=== PATIENT | male | born 1980 | race Hispanic/Latino ===

== ENCOUNTER 2022-02-09 13:52 | Emergency (ER) | payer OTHER ==
--- NOTE | 2022-02-09 23:45 | Emergency Department Report ---
ED General Adult HPI - General Chief complaint: Pain General Stated complaint: PAIN/STIFFNESS SHOULDER/LEGS/FOOT Time Seen by Provider: 02/09/22 20:41 Source: patient Mode of arrival: Ambulatory Limitations: No Limitations - History of Present Illness Initial comments: 41-year-old male with past medical history of untreated HIV for the last 2 years presents emerged from complaining of joint stiffness to the hands knees ankles and shoulders which were preceded by a poison will rash which lingered for nearly 2 to 3 weeks. States that rash began to become red and inflamed and having drainage which triggered the symptoms which was similar to that of a MRSA infection he had sometime ago. Reports no flank pain, no diarrhea, no chest pain, no palpitations, no fever, chills, sweats. No hemoptysis no hematemesis, hematochezia. - Related Data Previous Rx's Medication Instructions Recorded Last Taken Type Chlorhexidine Gluconate [Hibiclens] 10 ml TP BID #240 liquid 02/09/22 Unknown Rx Ketorolac [Toradol] 10 mg PO Q6H PRN #15 tablet 02/09/22 Unknown Rx Sulfamethoxazole/Trimethoprim 1 each PO BID #20 02/09/22 Unknown Rx [Bactrim DS TAB] Allergies Allergy/AdvReac Type Severity Reaction Status Date / Time No Known Allergies Allergy Verified 02/09/22 14:34 ED Review of Systems ROS: Stated complaint: PAIN/STIFFNESS SHOULDER/LEGS/FOOT Other details as noted in HPI Comment: All other systems reviewed and negative ED Past Medical Hx - Past Medical History Hx HIV: Yes Additional medical history: MRSA - Surgical History Past Surgical History?: No - Social History Smoking Status: Never Smoker - Medications Home Medications: Home Medications Medication Instructions Recorded Confirmed Last Taken Type Chlorhexidine Gluconate [Hibiclens] 10 ml TP BID #240 liquid 02/09/22 Unknown Rx Ketorolac [Toradol] 10 mg PO Q6H PRN #15 tablet 02/09/22 Unknown Rx Sulfamethoxazole/Trimethoprim 1 each PO BID #20 02/09/22 Unknown Rx [Bactrim DS TAB] ED Physical Exam - General Limitations: No Limitations General appearance: alert, in no apparent distress - Head Head exam: Present: atraumatic, normocephalic - Eye Eye exam: Present: normal appearance, PERRL Pupils: Present: normal accommodation - ENT ENT exam: Present: normal exam, mucous membranes moist, TM's normal bilaterally - Neck Neck exam: Present: normal inspection - Respiratory Respiratory exam: Present: normal lung sounds bilaterally. Absent: respiratory distress, wheezes, rales, chest wall tenderness, prolonged expiratory - Cardiovascular Cardiovascular Exam: Present: regular rate, normal rhythm. Absent: systolic murmur, diastolic murmur, rubs, gallop - GI/Abdominal GI/Abdominal exam: Present: soft, normal bowel sounds - Rectal Rectal exam: Present: deferred - Extremities Exam Extremities exam: Present: normal inspection, normal capillary refill - Back Exam Back exam: Present: normal inspection. Absent: CVA tenderness (R), CVA tenderness (L) - Neurological Exam Neurological exam: Present: alert, oriented X3, CN II-XII intact - Psychiatric Psychiatric exam: Present: normal affect, normal mood - Skin Skin exam: Present: warm, dry, other (Diffuse papular rash to the arms legs with extensive leg nail trauma and some evidence areas of secondary infection/redness no wound discharge no fever, chills, sweats). Absent: intact, normal color, rash ED Course Vital Signs 02/09/22 14:31 Temperature 97.5 F L Pulse Rate 101 H Respiratory 18 Rate Blood Pressure 121/75 O2 Sat by Pulse 96 Oximetry Critical care attestation.: If time is entered above; I have spent that time in minutes in the direct care of this critically ill patient, excluding procedure time. ED Disposition Clinical Impression: Myalgia, Rash and nonspecific skin eruption, Arthralgia Disposition: 01 HOME / SELF CARE / HOMELESS Is pt being admited?: No Does the pt Need Aspirin: No Condition: Stable Instructions: Rash, Adult, Musculoskeletal Pain, Joint Pain Additional Instructions: Please be sure to follow-up with the listed provider and restart your HIV therapy as we discussed Prescriptions: Sulfamethoxazole/Trimethoprim [Bactrim DS TAB] 1 each PO BID #20 Chlorhexidine Gluconate [Hibiclens] 10 ml TP BID #240 liquid Ketorolac [Toradol] 10 mg PO Q6H PRN #15 tablet PRN Reason: Pain Referrals: LIZA TOMAS MD [Primary Care Provider] - 3-5 Days
[2022-02-10 00:15] VITALS: BP 127/81
== END 2022-02-10 00:15 | disposition home or self-care (01) ==
LOC: ED 13:52
DX: R21 Rash and other nonspecific skin eruption (principal); M79.10 Myalgia, unspecified site; Z21 Asymptomatic human immunodeficiency virus [HIV] infection status
CPT/HCPCS: 99282